=== PATIENT | female | born 1960 | race Caucasian/White ===

== ENCOUNTER → 2016-12-14 | Outpatient (CLI) | payer OTHER ==
--- NOTE | 2016-12-14 09:59 | RADIOLOGY REPORT PS360 ---
US ABD(COMPLETE-MULTI ORGANS HISTORY: ABNORMAL LIVER FUNCTIONelevated liver enzymes. HISTORY of JULES reflux Patient Age: 56 years: Female Ordering Physician: Jordy Nina MD TECHNIQUE: Ultrasound abdomen complete COMPARISON :Previous ultrasound right upper quadrant January 2008 FINDINGS : Large patient makes for more difficult scan : Pancreas unremarkable. Fair visualization of Head and body with limited visualization of the tail. Overlying gas Liver. Unremarkable. Only question Upper normal echogenicity reflect some early fatty changes. No biliary ductal dilatation. Portal vein satisfactory Gallbladder surgically absent Spleen appears normal. Normal size/& unremarkable. Aorta is normal in caliber 1.4 times X nearly 1.8 cm in AP. It tapers as it continues distal. No aneurysm. No remarkable atherosclerotic disease. Kidneys appear normal bilaterally. The cortex well-maintained bilateral. No hydronephrosis nor mass. Satisfactory color Doppler flow Right kidney.: Appears normal 9.8 cm length Left kidney: appears normal 9.2 cm length. Only question some mild cortical thinning upper pole left kidney but no good color Doppler flow here. It IMPRESSION: Gallbladder surgically removed. Liver appears satisfactory. No focal lesions. No ductal dilatation Only question some subtle diffuse fatty changes. . Essentially Negative ultrasound abdomen. Only suggestion of minor cortical thinning upper pole left kidney
== END ==
LOC: RAD 07:57
DX: R79.89 Other specified abnormal findings of blood chemistry (principal)